=== PATIENT | female | born 1975 | race Caucasian/White ===

== ENCOUNTER 2020-02-14 16:18 | Emergency (ER) | payer MEDICAID ==
[~2020-02-14] VITALS: Ht 157.5 cm; Wt 93.0 kg
--- NOTE | 2020-02-14 16:20 | NUR ---
PATIENT TO ER #8, NEGATIVE PRESSURE AND ISOLATION
[2020-02-14 16:26] VITALS: BP_SYST 138
--- NOTE | 2020-02-14 16:55 | NUR ---
DR BRAND IN TO ASSESS
--- NOTE | 2020-02-14 17:10 | NUR ---
URINE DIP POS FOR INFECTION, SENT TO LAB
[2020-02-14] MEDS ORDERED: KETOROLAC TROMETHAMINE 30 MG VIAL IVP ONE (17:15)
[2020-02-14] MEDS ORDERED: NACL 0.9% 1,000 ML IV ONE (17:15)
--- NOTE | 2020-02-14 17:20 | NUR ---
ALERT, CALM, RESP UNLABORED, SKIN WARM AND DRY. COMMUNICATES CLEARLY IN FULL COMPLETE SENTENCES, SKIN WARM AND DRY. NO DISTRESS, HERE TODAY AFTER FEVER AND BACK PAIN FOR 4 DAYS. NO RELIEF. DENIES CP/ SOB. STEADY GAIT. CLEAR MENTATION AND SPEECH.
--- NOTE | 2020-02-14 17:30 | NUR ---
NS 1 LITER AND TORADOL GIVEN. IV HL 20 GUAGE RT AC
[2020-02-14 18:02] VITALS: BP_SYST 136
--- NOTE | 2020-02-14 18:06 | NUR ---
Patient given written and verbal discharge instructions and verbalizes understanding. ER MD BRAND discussed with patient the results and treatment provided. Patient in stable condition. ID arm band removed. IV catheter removed intact and dressing applied, no active bleeding. Rx of given CIPRO AND MOTRIN. Patient educated on pain management and to follow up with PMD. Pain Scale 2/10. Opportunity for questions provided and answered. Medication side effect fact sheet provided.
--- NOTE | 2020-02-14 18:07 | NUR ---
STATED FEELING MUCH BETTER, RESP UNLABORED, NAD.
== END 2020-02-14 18:02 | disposition home or self-care (01) ==
LOC: SED 16:18
DX: N39.0 Urinary tract infection, site not specified (principal); R51 Headache; F17.200 Nicotine dependence, unspecified, uncomplicated
CPT/HCPCS: 87086; 96374; 99283; J1885; J7030; 87186-TC